=== PATIENT | female | born 1965 | race African-American/Black ===

== ENCOUNTER → 2021-03-16 | Outpatient (CLI) | payer OTHER ==
--- NOTE | 2021-03-16 14:19 | RAD ---
EXAM: Lumbar spine, 3 views. HISTORY: Pain. COMPARISON: None. FINDINGS: 3 views of the lumbar spine are obtained. There is mild retrolisthesis of L4 on L5 and L5 a nd S1. There is degenerative endplate remodeling at the mid lower lumbar levels, primarily L4-L5. The re is facet arthropathy at the mid lower lumbar levels. 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 The sacroiliac joints are intact. There is mild bilateral hip osteoarthriti s, partially included on the [id number]. IMPRESSION: 1. Multilevel degenerative change involving the lumbar spine, described above. 2. No acute osseous finding. Electronically signed by: Eli Eric MD (03/16/2021 2:17 PM) [id number]
== END ==
LOC: RAD 13:32
PROVIDERS: ATTEND Surgery
DX: Z02.71 Encounter for disability determination (principal); M47.816 Spondylosis without myelopathy or radiculopathy, lumbar region
CPT/HCPCS: 72100